=== PATIENT | female | born 1965 | race Two or more races ===

== ENCOUNTER → 2017-11-17 | Outpatient (CLI) | payer OTHER ==
[~2017-11-17] VITALS: Ht 152.4 cm; Wt 84.4 kg
[~2017-11-17] MED LIST: AROMASIN25 MG; AROMASIN25 MG PO; DECADRON P4 MG/ML-1M IH; ETODOLAC300 MG PO; HYZAAR 50-12.1 UDTAB PO; KETO10TA2 PO; NORFLEX100MG PO; TIZANIDINE HCL2 MG PO; TORADOL60 MG IM; VOLTAREM 75MG PO; VOLTAREN-XR100 MG PO; ZITHROMAX TRI-500 MG PO
== END | disposition home or self-care (01) ==
LOC: PPHC 10:25
DX: Z00.8 Encounter for other general examination (principal)

== ENCOUNTER 2017-11-22 07:25 | Outpatient (CLI) | payer OTHER ==
[2017-11-28] MEDS ORDERED: ETODOLAC300 MG PO (09:41)
[2017-11-28] MEDS ORDERED: TIZANIDINE HCL2 MG PO (09:41)
== END 2017-11-22 07:32 | disposition home or self-care (01) ==
LOC: LAB 07:25
DX: Z85.3 Personal history of malignant neoplasm of breast (principal); I10 Essential (primary) hypertension; R10.9 Unspecified abdominal pain

== ENCOUNTER 2018-01-05 15:45 | Outpatient (CLI) | payer OTHER | END 2018-01-05 16:22 | disposition home or self-care (01) | LOC: RAD 15:45 | DX: M54.2 Cervicalgia (principal); M25.512 Pain in left shoulder ==

== ENCOUNTER → 2018-01-05 | Outpatient (CLI) | payer OTHER | END | disposition home or self-care (01) | LOC: PPHC 15:05 | DX: M54.2 Cervicalgia (principal) ==

== ENCOUNTER → 2018-01-14 | Outpatient (CLI) | payer OTHER | END | disposition home or self-care (01) | LOC: RAD 11:18 | DX: M79.671 Pain in right foot (principal) ==

== ENCOUNTER → 2018-01-14 | Outpatient (CLI) | payer OTHER ==
[~2018-01-14] VITALS: Ht 152.4 cm; Wt 85.7 kg
== END | disposition home or self-care (01) ==
LOC: PPHC 11:07
DX: M79.671 Pain in right foot (principal)

== ENCOUNTER → 2018-01-31 | Outpatient (CLI) | payer OTHER | END | disposition home or self-care (01) | LOC: EKG 08:58 | DX: D23.10 Other benign neoplasm of skin of unspecified eyelid, including canthus (principal); Z01.810 Encounter for preprocedural cardiovascular examination ==

== ENCOUNTER → 2018-01-31 | Outpatient (CLI) | payer OTHER | END | disposition home or self-care (01) | LOC: RAD 09:00 | DX: D23.10 Other benign neoplasm of skin of unspecified eyelid, including canthus (principal) ==

== ENCOUNTER → 2018-01-31 | Outpatient (CLI) | payer OTHER | END | disposition home or self-care (01) | LOC: LAB 08:55 | DX: D23.10 Other benign neoplasm of skin of unspecified eyelid, including canthus (principal); Z01.812 Encounter for preprocedural laboratory examination ==

== ENCOUNTER 2018-02-03 06:10 | Day surgery (SDC) | payer OTHER | END 2018-02-03 09:50 | disposition home or self-care (01) | LOC: CIR.AMB 06:10 | DX: H02.64 Xanthelasma of left upper eyelid (principal) ==

== ENCOUNTER 2018-03-31 12:14 | Outpatient (CLI) | payer OTHER | END 2018-03-31 12:20 | disposition home or self-care (01) | LOC: LAB 12:14 | DX: R11.2 Nausea with vomiting, unspecified (principal); R10.2 Pelvic and perineal pain ==

== ENCOUNTER 2018-04-16 09:20 | Emergency (ER) | payer OTHER ==
[~2018-04-16] VITALS: Ht 160 cm; Wt 86.2 kg
[2018-04-16] MEDS ORDERED: HYZAAR 50-12.51 EACH (09:36)
== END 2018-04-16 14:49 | disposition home or self-care (01) ==
LOC: ER 09:20
DX: R07.89 Other chest pain (principal)

== ENCOUNTER 2018-04-20 12:00 | Outpatient (CLI) | payer OTHER ==
[~2018-04-20 12:00] MED LIST changes: +HYZAAR 50-12.51 EACH
== END 2018-04-20 12:50 | disposition home or self-care (01) ==
LOC: RAD 12:00
DX: R06.02 Shortness of breath (principal)

== ENCOUNTER → 2018-04-21 13:54 | Outpatient (CLI) | payer OTHER | END | disposition home or self-care (01) | LOC: LAB 13:54 | DX: I50.22 Chronic systolic (congestive) heart failure (principal) ==

== ENCOUNTER 2018-04-28 10:31 | Outpatient (CLI) | payer OTHER | END 2018-04-28 11:00 | disposition home or self-care (01) | LOC: NUCLEAR 10:31 | DX: I50.22 Chronic systolic (congestive) heart failure (principal); Z85.3 Personal history of malignant neoplasm of breast; I10 Essential (primary) hypertension ==

== ENCOUNTER 2018-06-19 07:13 | Outpatient (CLI) | payer OTHER | END 2018-06-19 07:19 | disposition home or self-care (01) | LOC: LAB 07:13 | DX: R60.9 Edema, unspecified (principal) ==

== ENCOUNTER 2018-09-27 16:20 | Emergency (ER) | payer OTHER ==
[~2018-09-27] VITALS: Ht 162.6 cm; Wt 72.6 kg
== END 2018-09-27 18:32 | disposition home or self-care (01) ==
LOC: ER 16:20
DX: F43.21 Adjustment disorder with depressed mood (principal); F41.8 Other specified anxiety disorders

== ENCOUNTER 2018-11-03 06:38 | Outpatient (CLI) | payer OTHER | END 2018-11-03 06:57 | disposition home or self-care (01) | LOC: LAB 06:38 | DX: J06.9 Acute upper respiratory infection, unspecified (principal); I10 Essential (primary) hypertension; E55.9 Vitamin D deficiency, unspecified; M25.50 Pain in unspecified joint; G93.3 Postviral and related fatigue syndromes ==

== ENCOUNTER → 2018-12-07 | Outpatient (CLI) | payer OTHER | END | disposition home or self-care (01) | LOC: LAB 09:29 | DX: B34.8 Other viral infections of unspecified site (principal); J11.1 Influenza due to unidentified influenza virus with other respiratory manifestations ==

== ENCOUNTER 2019-01-05 07:47 | Outpatient (CLI) | payer OTHER | END 2019-01-05 13:05 | disposition home or self-care (01) | LOC: LAB 07:47 | DX: E03.8 Other specified hypothyroidism (principal); D46.4 Refractory anemia, unspecified; E11.9 Type 2 diabetes mellitus without complications; E55.9 Vitamin D deficiency, unspecified; I10 Essential (primary) hypertension; L40.50 Arthropathic psoriasis, unspecified; M45.9 Ankylosing spondylitis of unspecified sites in spine; M06.09 Rheumatoid arthritis without rheumatoid factor, multiple sites ==

== ENCOUNTER → 2019-01-24 06:28 | Outpatient (CLI) | payer OTHER | END | disposition home or self-care (01) | LOC: LAB 06:28 | DX: K75.89 Other specified inflammatory liver diseases (principal) ==

== ENCOUNTER 2019-02-26 08:02 | Outpatient (CLI) | payer OTHER | END 2019-02-26 08:27 | disposition home or self-care (01) | LOC: LAB 08:02 | DX: K75.89 Other specified inflammatory liver diseases (principal); I25.10 Atherosclerotic heart disease of native coronary artery without angina pectoris; L40.50 Arthropathic psoriasis, unspecified ==

== ENCOUNTER → 2019-02-26 | Outpatient (CLI) | payer OTHER | END | disposition home or self-care (01) | LOC: NUCLEAR 09:00 | DX: M25.50 Pain in unspecified joint (principal) | CPT/HCPCS: 78315; A9503 ==

== ENCOUNTER → 2019-04-13 10:32 | Outpatient (CLI) | payer OTHER | END | disposition home or self-care (01) | LOC: LAB 10:32 | DX: G47.33 Obstructive sleep apnea (adult) (pediatric) (principal); K76.0 Fatty (change of) liver, not elsewhere classified; E03.8 Other specified hypothyroidism ==

== ENCOUNTER 2019-06-26 07:04 | Emergency (ER) | payer OTHER ==
[~2019-06-26] VITALS: Ht 157.5 cm; Wt 97.5 kg
[2019-06-26] MEDS ORDERED: ATACAND16 MG (07:16)
[2019-06-26] MEDS ORDERED: XARELTO15 MG (15:36)
== END 2019-06-26 09:58 | disposition home or self-care (01) ==
LOC: ER 07:04
DX: I89.0 Lymphedema, not elsewhere classified (principal); M25.512 Pain in left shoulder

== ENCOUNTER 2019-06-26 15:35 | Inpatient (IN) | payer OTHER ==
[~2019-06-26] VITALS: Ht 261.6 cm; Wt 97.5 kg
[~2019-06-26 15:35] MED LIST changes: +ATACAND16 MG
[2019-06-26] MEDS ORDERED: XARELTO15 MG (15:36)
== END 2019-06-28 11:00 | disposition home or self-care (01) | DRG 299 ==
LOC: ER 15:35 → ICU-2 21:39
PROVIDERS: ADMIT Internal Medicine
PROC: B246ZZZ Ultrasonography of Right and Left Heart (ICD-10-PCS; principal; 2019-06-26)
PROC: BB24Y0Z Computerized Tomography (CT Scan) of Bilateral Lungs using Other Contrast, Unenhanced and Enhanced (ICD-10-PCS; 2019-06-26)
PROC: 3E0F7GC Introduction of Other Therapeutic Substance into Respiratory Tract, Via Natural or Artificial Opening (ICD-10-PCS; 2019-06-26)
PROC: 4A033R1 Measurement of Arterial Saturation, Peripheral, Percutaneous Approach (ICD-10-PCS; 2019-06-26)
PROC: B54MZZZ Ultrasonography of Right Upper Extremity Veins (ICD-10-PCS; 2019-06-27)
DX: I80.8 Phlebitis and thrombophlebitis of other sites (principal); I26.99 Other pulmonary embolism without acute cor pulmonale; I82.623 Acute embolism and thrombosis of deep veins of upper extremity, bilateral; R09.02 Hypoxemia; Z85.3 Personal history of malignant neoplasm of breast

== ENCOUNTER 2019-07-03 12:11 | Outpatient (CLI) | payer OTHER ==
[~2019-07-03 12:11] MED LIST changes: +XARELTO15 MG
[2019-07-03] MEDS ORDERED: LIPITOR40 MG (17:54)
== END 2019-07-03 12:23 | disposition home or self-care (01) ==
LOC: SONOGRAMA 12:11
DX: R07.89 Other chest pain (principal)

== ENCOUNTER 2019-07-03 17:46 | Emergency (ER) | payer OTHER ==
[~2019-07-03] VITALS: Ht 160 cm; Wt 97.1 kg
[2019-07-03] MEDS ORDERED: LIPITOR40 MG (17:54)
== END 2019-07-03 20:50 | disposition home or self-care (01) ==
LOC: ER 17:46
DX: R06.02 Shortness of breath (principal)

== ENCOUNTER 2019-07-27 13:12 | Outpatient (CLI) | payer OTHER ==
[~2019-07-27 13:12] MED LIST changes: +LIPITOR40 MG
== END 2019-07-27 13:15 | disposition home or self-care (01) ==
LOC: NUCLEAR 13:12
DX: I87.2 Venous insufficiency (chronic) (peripheral) (principal)

== ENCOUNTER 2019-09-13 08:28 | Outpatient (CLI) | payer OTHER | END 2019-09-13 09:52 | disposition home or self-care (01) | LOC: LAB 08:28 | DX: E78.49 Other hyperlipidemia (principal); E55.9 Vitamin D deficiency, unspecified; Z00.00 Encounter for general adult medical examination without abnormal findings; R10.2 Pelvic and perineal pain ==

== ENCOUNTER → 2019-10-01 11:48 | Outpatient (CLI) | payer OTHER | END | disposition home or self-care (01) | LOC: LAB 11:48 | DX: N39.0 Urinary tract infection, site not specified (principal) ==

== ENCOUNTER → 2019-10-01 | Outpatient (CLI) | payer OTHER | END | disposition home or self-care (01) | LOC: SONOGRAMA 11:35 | DX: N39.0 Urinary tract infection, site not specified (principal); N23 Unspecified renal colic ==

== ENCOUNTER → 2019-10-01 | Outpatient (CLI) | payer OTHER | END | disposition home or self-care (01) | LOC: RAD 14:29 | DX: R05 Cough (principal) ==

== ENCOUNTER → 2019-10-08 | Outpatient (CLI) | payer OTHER | END | disposition home or self-care (01) | LOC: NUCLEAR 08:00 | DX: I26.99 Other pulmonary embolism without acute cor pulmonale (principal); I10 Essential (primary) hypertension; C50.812 Malignant neoplasm of overlapping sites of left female breast; C50.811 Malignant neoplasm of overlapping sites of right female breast; E66.8 Other obesity; R06.00 Dyspnea, unspecified ==

== ENCOUNTER 2019-11-11 11:45 | Emergency (ER) | payer OTHER ==
[~2019-11-11] VITALS: Ht 160 cm; Wt 95.3 kg
== END 2019-11-11 15:22 | disposition home or self-care (01) ==
LOC: ER 11:45
DX: R51 Headache (principal)

== ENCOUNTER 2019-11-16 10:47 | Inpatient (IN) | payer OTHER ==
[~2019-11-16] VITALS: Ht 160 cm; Wt 95.3 kg
--- NOTE | 2019-11-16 11:05 | NUR ---
PACIENTE ALERTA, ORIENTADA X 3 REFIERE DOLOR DE RHONA TOMAS DESDE QUE SE A PUESTO TOMAS DESDE A NOCHE
== END 2019-11-18 15:28 | disposition home or self-care (01) | DRG 67 ==
LOC: ER 10:47 → SURH 11:02 → SEC-K 11:02 → MEDJ 13:30 → SURH 15:42
PROVIDERS: ADMIT Internal Medicine
PROC: B348ZZZ Ultrasonography of Bilateral Internal Carotid Arteries (ICD-10-PCS; principal; 2019-11-16)
PROC: B345ZZZ Ultrasonography of Bilateral Common Carotid Arteries (ICD-10-PCS; 2019-11-16)
PROC: B030ZZZ Magnetic Resonance Imaging (MRI) of Brain (ICD-10-PCS; 2019-11-16)
PROC: B030Y0Z Magnetic Resonance Imaging (MRI) of Brain using Other Contrast, Unenhanced and Enhanced (ICD-10-PCS; 2019-11-16)
PROC: B338ZZZ Magnetic Resonance Imaging (MRI) of Bilateral Internal Carotid Arteries (ICD-10-PCS; 2019-11-16)
PROC: B335ZZZ Magnetic Resonance Imaging (MRI) of Bilateral Common Carotid Arteries (ICD-10-PCS; 2019-11-16)
DX: I65.23 Occlusion and stenosis of bilateral carotid arteries (principal); I26.99 Other pulmonary embolism without acute cor pulmonale; I80.8 Phlebitis and thrombophlebitis of other sites; I11.9 Hypertensive heart disease without heart failure; Z85.3 Personal history of malignant neoplasm of breast
CPT/HCPCS: 70552

== ENCOUNTER 2020-01-01 08:20 | Outpatient (CLI) | payer OTHER | END 2020-01-01 08:24 | disposition home or self-care (01) | LOC: RAD 08:20 | DX: Q28.2 Arteriovenous malformation of cerebral vessels (principal); M77.32 Calcaneal spur, left foot; M77.31 Calcaneal spur, right foot ==

== ENCOUNTER 2020-01-01 08:47 | Outpatient (CLI) | payer OTHER | END 2020-01-01 08:58 | disposition home or self-care (01) | LOC: LAB 08:47 | DX: Q28.2 Arteriovenous malformation of cerebral vessels (principal) ==

== ENCOUNTER 2020-02-22 09:48 | Outpatient (CLI) | payer OTHER | END 2020-02-22 09:54 | disposition home or self-care (01) | LOC: TOM 09:48 | DX: I26.99 Other pulmonary embolism without acute cor pulmonale (principal) ==

== ENCOUNTER → 2020-06-03 08:42 | Outpatient (CLI) | payer OTHER | END | disposition home or self-care (01) | LOC: CERTIFICAD 08:42 | PROVIDERS: ATTEND Family Medicine | DX: Z11.1 Encounter for screening for respiratory tuberculosis (principal) ==

== ENCOUNTER 2020-06-16 09:04 | Outpatient (CLI) | payer OTHER | END 2020-06-16 15:00 | disposition home or self-care (01) | LOC: LAB 09:04 | DX: Q28.2 Arteriovenous malformation of cerebral vessels (principal) ==

== ENCOUNTER 2020-06-16 10:08 | Outpatient (CLI) | payer OTHER | END 2020-06-16 10:15 | disposition home or self-care (01) | LOC: RAD 10:08 | PROVIDERS: ATTEND Radiology Vascular & Interventional Radiology | DX: Q28.2 Arteriovenous malformation of cerebral vessels (principal) ==

== ENCOUNTER 2020-07-29 11:11 | Outpatient (CLI) | payer OTHER | END 2020-07-29 11:15 | disposition home or self-care (01) | LOC: LAB 11:11 | PROVIDERS: ATTEND Internal Medicine Hematology & Oncology | DX: D50.8 Other iron deficiency anemias (principal); R74.0 Nonspecific elevation of levels of transaminase and lactic acid dehydrogenase [LDH]; C50.411 Malignant neoplasm of upper-outer quadrant of right female breast; E55.9 Vitamin D deficiency, unspecified ==

== ENCOUNTER → 2020-09-16 | Emergency (ER) | payer OTHER ==
[~2020-09-16] VITALS: Ht 160 cm; Wt 93.4 kg
[~2020-09-16] MED LIST changes: +TOPAMAX50 MG; +TOPROL XL50 M1
== END | disposition home or self-care (01) ==
LOC: ER 18:13
DX: M54.2 Cervicalgia (principal); R51.9 Headache, unspecified; R06.02 Shortness of breath

== ENCOUNTER 2020-10-09 08:21 | Outpatient (CLI) | payer OTHER | END 2020-10-09 08:27 | disposition home or self-care (01) | LOC: TOM 08:21 | PROVIDERS: ATTEND Internal Medicine Pulmonary Disease | DX: R05 Cough (principal); J45.30 Mild persistent asthma, uncomplicated; I26.99 Other pulmonary embolism without acute cor pulmonale ==

== ENCOUNTER 2020-11-08 08:28 | Outpatient (CLI) | payer OTHER | END 2020-11-08 08:32 | disposition home or self-care (01) | LOC: LAB 08:28 | PROVIDERS: ATTEND Internal Medicine Hematology & Oncology | DX: D53.0 Protein deficiency anemia (principal) ==

== ENCOUNTER 2021-01-28 08:09 | Outpatient (CLI) | payer OTHER | END 2021-01-28 08:13 | disposition home or self-care (01) | LOC: LAB 08:09 | PROVIDERS: ATTEND Internal Medicine Hematology & Oncology | DX: D64.89 Other specified anemias (principal); R74.01 Elevation of levels of liver transaminase levels; C50.411 Malignant neoplasm of upper-outer quadrant of right female breast; E70.29 Other disorders of tyrosine metabolism ==

== ENCOUNTER 2021-03-09 06:59 | Outpatient (CLI) | payer OTHER | END 2021-03-09 07:03 | disposition home or self-care (01) | LOC: LAB 06:59 | DX: C73 Malignant neoplasm of thyroid gland (principal); E03.8 Other specified hypothyroidism; E78.2 Mixed hyperlipidemia ==

== ENCOUNTER 2021-06-23 07:34 | Outpatient (CLI) | payer OTHER | END 2021-06-23 07:35 | disposition home or self-care (01) | LOC: LAB 07:34 | PROVIDERS: ATTEND Neuromusculoskeletal Medicine & OMM | DX: E03.8 Other specified hypothyroidism (principal); H53.47 Heteronymous bilateral field defects; Q28.2 Arteriovenous malformation of cerebral vessels ==

== ENCOUNTER 2021-07-30 07:33 | Outpatient (CLI) | payer OTHER | END 2021-07-30 07:55 | disposition home or self-care (01) | LOC: LAB 07:33 | DX: E03.8 Other specified hypothyroidism (principal); E78.2 Mixed hyperlipidemia; C73 Malignant neoplasm of thyroid gland ==

== ENCOUNTER → 2021-09-19 09:19 | Outpatient (CLI) | payer OTHER | END | disposition home or self-care (01) | LOC: LAB 09:19 | PROVIDERS: ATTEND Internal Medicine Cardiovascular Disease | DX: I10 Essential (primary) hypertension (principal); E66.9 Obesity, unspecified; Z13.6 Encounter for screening for cardiovascular disorders; E55.9 Vitamin D deficiency, unspecified; E78.49 Other hyperlipidemia; E03.8 Other specified hypothyroidism; R10.84 Generalized abdominal pain; N39.0 Urinary tract infection, site not specified; D64.89 Other specified anemias ==

== ENCOUNTER → 2021-10-16 | Outpatient (CLI) | payer OTHER | END | disposition home or self-care (01) | LOC: PPH VACUNA 08:00 | PROVIDERS: ATTEND Emergency Medicine Pediatric Emergency Medicine | DX: Z23 Encounter for immunization (principal) ==

== ENCOUNTER 2022-01-14 08:03 | Outpatient (CLI) | payer OTHER | END 2022-01-14 08:23 | disposition home or self-care (01) | LOC: LAB 08:03 | PROVIDERS: ATTEND Internal Medicine Cardiovascular Disease | DX: E78.2 Mixed hyperlipidemia (principal); E11.65 Type 2 diabetes mellitus with hyperglycemia; I10 Essential (primary) hypertension; C73 Malignant neoplasm of thyroid gland; E78.5 Hyperlipidemia, unspecified; E55.9 Vitamin D deficiency, unspecified; N39.0 Urinary tract infection, site not specified; R42 Dizziness and giddiness; R10.2 Pelvic and perineal pain; D64.9 Anemia, unspecified; R10.9 Unspecified abdominal pain; E03.9 Hypothyroidism, unspecified; E07.9 Disorder of thyroid, unspecified; R74.01 Elevation of levels of liver transaminase levels; C50.411 Malignant neoplasm of upper-outer quadrant of right female breast ==

== ENCOUNTER 2022-03-18 10:00 | Outpatient (CLI) | payer OTHER | END 2022-03-18 10:05 | disposition home or self-care (01) | LOC: LAB 10:00 | PROVIDERS: ATTEND Obstetrics & Gynecology | DX: Z00.00 Encounter for general adult medical examination without abnormal findings (principal); I10 Essential (primary) hypertension; E78.00 Pure hypercholesterolemia, unspecified; E03.9 Hypothyroidism, unspecified; N39.0 Urinary tract infection, site not specified; Z11.4 Encounter for screening for human immunodeficiency virus [HIV]; Z12.11 Encounter for screening for malignant neoplasm of colon; E55.9 Vitamin D deficiency, unspecified; Z21 Asymptomatic human immunodeficiency virus [HIV] infection status; R79.9 Abnormal finding of blood chemistry, unspecified; R79.89 Other specified abnormal findings of blood chemistry ==

== ENCOUNTER 2022-03-20 09:06 | Outpatient (CLI) | payer OTHER | END 2022-03-20 09:20 | disposition home or self-care (01) | LOC: LAB 09:06 | PROVIDERS: ATTEND Obstetrics & Gynecology | DX: Z00.00 Encounter for general adult medical examination without abnormal findings (principal); I10 Essential (primary) hypertension; E03.9 Hypothyroidism, unspecified; E78.00 Pure hypercholesterolemia, unspecified; N39.0 Urinary tract infection, site not specified; Z11.4 Encounter for screening for human immunodeficiency virus [HIV]; Z12.11 Encounter for screening for malignant neoplasm of colon; E55.9 Vitamin D deficiency, unspecified; Z21 Asymptomatic human immunodeficiency virus [HIV] infection status; R79.9 Abnormal finding of blood chemistry, unspecified; R79.89 Other specified abnormal findings of blood chemistry ==

== ENCOUNTER → 2022-07-24 | Outpatient (CLI) | payer OTHER | END | disposition home or self-care (01) | LOC: LAB 09:29 | PROVIDERS: ATTEND Obstetrics & Gynecology | DX: D64.9 Anemia, unspecified (principal); N39.0 Urinary tract infection, site not specified; R10.9 Unspecified abdominal pain; E03.9 Hypothyroidism, unspecified; E78.5 Hyperlipidemia, unspecified; E55.9 Vitamin D deficiency, unspecified; R80.9 Proteinuria, unspecified; E11.9 Type 2 diabetes mellitus without complications ==

== ENCOUNTER → 2022-11-03 08:35 | Outpatient (CLI) | payer OTHER | END | disposition home or self-care (01) | LOC: LAB 08:35 | PROVIDERS: ATTEND Internal Medicine Hematology & Oncology | DX: D64.9 Anemia, unspecified (principal); R74.01 Elevation of levels of liver transaminase levels; C50.411 Malignant neoplasm of upper-outer quadrant of right female breast; C56.1 Malignant neoplasm of right ovary ==

== ENCOUNTER 2023-06-14 06:44 | Outpatient (CLI) | payer OTHER | END 2023-06-14 06:45 | disposition home or self-care (01) | LOC: LAB 06:44 | PROVIDERS: ATTEND Internal Medicine Hematology & Oncology | DX: D64.9 Anemia, unspecified (principal); E11.9 Type 2 diabetes mellitus without complications; E78.5 Hyperlipidemia, unspecified; C50.411 Malignant neoplasm of upper-outer quadrant of right female breast ==

== ENCOUNTER 2023-07-13 06:49 | Outpatient (CLI) | payer OTHER | END 2023-07-13 06:50 | disposition home or self-care (01) | LOC: LAB 06:49 | DX: E03.9 Hypothyroidism, unspecified (principal); N39.0 Urinary tract infection, site not specified; D64.9 Anemia, unspecified; E55.9 Vitamin D deficiency, unspecified; Z12.11 Encounter for screening for malignant neoplasm of colon; Z88.9 Allergy status to unspecified drugs, medicaments and biological substances ==

== ENCOUNTER → 2023-08-08 07:28 | Outpatient (CLI) | payer OTHER ==
[2023-08-08 08:20] LABS: CREATININE SERUM 0.75 mg/dL (0.55-1.02)
== END | disposition home or self-care (01) ==
LOC: LAB 07:28
DX: Q28.2 Arteriovenous malformation of cerebral vessels (principal)

== ENCOUNTER 2023-12-02 06:31 | Outpatient (CLI) | payer OTHER ==
[2023-12-02 07:35] LABS: PH,URINE 5.5 (5.0-8.0); URINE APPEARANCE Clear; URINE BILIRRUBIN Negative (NEGATIVE); URINE BLOOD Negative; URINE COLOR Yellow; URINE GLUCOSE Negative (NEGATIVE); URINE LEUKOCYTE Negative; URINE NITRATE Negative; URINE PROTEIN Negative (NEGATIVE)
[2023-12-02 07:39] LABS: URINE BACTERIA 924.6 uL (0.0-1933); URINE EPITHELIAL CELLS 20.5 uL (0.0-38.8); URINE WBC 7.7 uL (0.0-23.2)
== END 2023-12-02 06:32 | disposition home or self-care (01) ==
LOC: LAB 06:31
PROVIDERS: ATTEND General Practice
DX: N39.0 Urinary tract infection, site not specified (principal)

== ENCOUNTER 2023-12-02 07:23 | Outpatient (CLI) | payer OTHER ==
[2023-12-02 08:06] LABS: HEMATOCRIT 35.9 % (36.0-45.00); HEMOGLOBIN 11.8 g/dL (12.0-15.00); MEAN CELL VOLUME 79.4 fL (80.00-100.00); MEAN CORPUSCULAR HEMOGLOBIN 26.2 pg (27.00-32.0); PLATELET COUNT 375 K/uL (150-450); RED BLOOD COUNT 4.52 M/uL (4.00-6.00); RED CELL DISTRIBUTION WIDTH 16.1 % (11.5-14.5)
[2023-12-02 08:30] LABS: ALBUMIN 3.4 gm/dL (3.4-5.0); BILIRUBIN TOTAL 0.46 mg/dL (0.3-1.2); CALCIUM 8.9 mg/dL (8.5-10.1); CHOL HDL RATIO 2.8 (0-5.0); CREATININE SERUM 0.83 mg/dL (0.55-1.02); GFR 70.86; GLOBULINA 3.7 G/DL (2.4-3.5); POTASSIUM 3.89 mEq/L (3.5-5.1); TOTAL PROTEIN 7.1 gm/dL (6.4-8.2)
== END 2023-12-02 14:05 | disposition home or self-care (01) ==
LOC: LAB 07:23
PROVIDERS: ATTEND Internal Medicine Hematology & Oncology
DX: D64.9 Anemia, unspecified (principal); E11.9 Type 2 diabetes mellitus without complications; I10 Essential (primary) hypertension; C50.411 Malignant neoplasm of upper-outer quadrant of right female breast; E78.00 Pure hypercholesterolemia, unspecified

== ENCOUNTER 2023-12-30 07:04 | Outpatient (CLI) | payer OTHER ==
[2023-12-30 09:06] LABS: CALCIUM 9.7 mg/dL (8.5-10.1); MAGNESIUM 1.9 mg/dL (1.8-2.4); PHOSPHOROUS 3.5 mg/dL (2.5-4.9)
== END 2023-12-30 07:05 | disposition home or self-care (01) ==
LOC: LAB 07:04
PROVIDERS: ATTEND Internal Medicine Hematology & Oncology
DX: M81.0 Age-related osteoporosis without current pathological fracture (principal); E55.9 Vitamin D deficiency, unspecified

== ENCOUNTER 2024-05-09 07:02 | Outpatient (CLI) | payer OTHER ==
[2024-05-09 07:50] LABS: HEMATOCRIT 36.1 % (36.0-45.00); HEMOGLOBIN 11.9 g/dL (12.0-15.00); MEAN CELL VOLUME 80.3 fL (80.00-100.00); MEAN CORPUSCULAR HEMOGLOBIN 26.3 pg (27.00-32.0); MEAN CORPUSCULAR HGB CONC 32.8 g/dl (32.0-36.0); PLATELET COUNT 339 K/uL (150-450); RED CELL DISTRIBUTION WIDTH 15.6 % (11.5-14.5)
[2024-05-09 08:58] LABS: ALBUMIN 3.3 gm/dL (3.4-5.0); BILIRUBIN TOTAL 0.39 mg/dL (0.3-1.2); CALCIUM 9.4 mg/dL (8.5-10.1); CHOL HDL RATIO 3.4 (0-5.0); CREATININE SERUM 0.88 mg/dL (0.55-1.02); GFR 66.23; GLOBULINA 4.1 G/DL (2.4-3.5); POTASSIUM 4.06 mEq/L (3.5-5.1); TOTAL PROTEIN 7.4 gm/dL (6.4-8.2)
== END 2024-05-09 07:03 | disposition home or self-care (01) ==
LOC: LAB 07:02
PROVIDERS: ATTEND Internal Medicine
DX: D64.9 Anemia, unspecified (principal); R10.9 Unspecified abdominal pain; E78.5 Hyperlipidemia, unspecified; E11.9 Type 2 diabetes mellitus without complications

== ENCOUNTER 2024-05-30 06:47 | Outpatient (CLI) | payer OTHER ==
[2024-05-30 07:20] LABS: HEMATOCRIT 35.2 % (36.0-45.00); HEMOGLOBIN 11.6 g/dL (12.0-15.00); MEAN CELL VOLUME 79.3 fL (80.00-100.00); MEAN CORPUSCULAR HEMOGLOBIN 26.1 pg (27.00-32.0); MEAN CORPUSCULAR HGB CONC 32.9 g/dl (32.0-36.0); PLATELET COUNT 370 K/uL (150-450); RED BLOOD COUNT 4.45 M/uL (4.00-6.00); RED CELL DISTRIBUTION WIDTH 15.8 % (11.5-14.5)
[2024-05-30 08:32] LABS: ALBUMIN 3.3 gm/dL (3.4-5.0); BILIRUBIN TOTAL 0.48 mg/dL (0.3-1.2); CALCIUM 9.1 mg/dL (8.5-10.1); CHOL HDL RATIO 3.3 (0-5.0); CREATININE SERUM 0.79 mg/dL (0.55-1.02); GFR 74.75; GLOBULINA 4.2 G/DL (2.4-3.5); POTASSIUM 4.03 mEq/L (3.5-5.1); T4 FREE 1.15 NG/ML (0.76-1.46); TOTAL PROTEIN 7.5 gm/dL (6.4-8.2); TSH 2.5 uIU/mL (0.358-3.74)
== END 2024-05-30 06:48 | disposition home or self-care (01) ==
LOC: LAB 06:47
PROVIDERS: ATTEND Internal Medicine
DX: D64.9 Anemia, unspecified (principal); E11.9 Type 2 diabetes mellitus without complications; I10 Essential (primary) hypertension; C50.411 Malignant neoplasm of upper-outer quadrant of right female breast; E78.00 Pure hypercholesterolemia, unspecified; E03.8 Other specified hypothyroidism; E78.5 Hyperlipidemia, unspecified; E11.65 Type 2 diabetes mellitus with hyperglycemia

== ENCOUNTER 2024-06-12 08:46 | Outpatient (CLI) | payer OTHER | END 2024-06-12 08:52 | disposition home or self-care (01) | LOC: RAD 08:46 | PROVIDERS: ATTEND Internal Medicine Pulmonary Disease | DX: J20.9 Acute bronchitis, unspecified (principal) ==

== ENCOUNTER 2024-06-18 07:43 | Outpatient (CLI) | payer OTHER ==
[2024-06-18 08:35] LABS: PH,URINE 5.5 (5.0-8.0); URINE APPEARANCE Cloudy; URINE BILIRRUBIN Negative (NEGATIVE); URINE BLOOD Negative; URINE COLOR Yellow; URINE GLUCOSE Negative (NEGATIVE); URINE KETONE Trace (NEGATIVE); URINE LEUKOCYTE Trace; URINE NITRATE Negative; URINE PROTEIN Negative (NEGATIVE); URINE UROBILINOGEN 0.2 E.U./dl
[2024-06-18 08:37] LABS: HEMATOCRIT 36.3 % (36.0-45.00); MEAN CELL VOLUME 78.5 fL (80.00-100.00); MEAN CORPUSCULAR HGB CONC 33.1 g/dl (32.0-36.0); PLATELET COUNT 430 K/uL (150-450); RED BLOOD COUNT 4.62 M/uL (4.00-6.00); RED CELL DISTRIBUTION WIDTH 15.6 % (11.5-14.5)
[2024-06-18 08:38] LABS: URINE BACTERIA 2523.5 uL (0.0-1933); URINE EPITHELIAL CELLS 46.3 uL (0.0-38.8); URINE RBC 11.2 uL (0.0-20.8); URINE WBC 42.6 uL (0.0-23.2)
[2024-06-18 08:50] LABS: URINE CAST 1.37 uL (0.0-1.40)
[2024-06-18 08:51] LABS: URINE CRYSTALS MODERATE /HPF
[2024-06-18 09:21] LABS: ob NEGATIVE (NEGATIVE)
[2024-06-18 10:08] LABS: CALCIUM 10.2 mg/dL (8.5-10.1); CHOL HDL RATIO 3.6 (0-5.0); CREATININE SERUM 0.9 mg/dL (0.55-1.02); GFR 64.31; POTASSIUM 3.92 mEq/L (3.5-5.1); T4 TOTAL 12.06 UG/DL (4.8-13.9); TSH 3.93 uIU/mL (0.358-3.74)
== END 2024-06-18 07:55 | disposition home or self-care (01) ==
LOC: LAB 07:43
PROVIDERS: ATTEND General Practice
DX: E03.9 Hypothyroidism, unspecified (principal); N39.0 Urinary tract infection, site not specified; I11.9 Hypertensive heart disease without heart failure; E78.5 Hyperlipidemia, unspecified; Z12.11 Encounter for screening for malignant neoplasm of colon

== ENCOUNTER 2024-09-04 07:21 | Outpatient (CLI) | payer OTHER ==
[2024-09-04 07:55] LABS: URINE APPEARANCE Clear; URINE BACTERIA 1004.2 uL (0.0-1933); URINE BILIRRUBIN Negative (NEGATIVE); URINE BLOOD Negative; URINE COLOR Yellow; URINE EPITHELIAL CELLS 38.6 uL (0.0-38.8); URINE GLUCOSE Negative (NEGATIVE); URINE KETONE Trace (NEGATIVE); URINE LEUKOCYTE Negative; URINE NITRATE Negative; URINE PROTEIN Negative (NEGATIVE); URINE RBC 11.6 uL (0.0-20.8); URINE WBC 21.4 uL (0.0-23.2)
[2024-09-04 07:58] LABS: HEMATOCRIT 36.8 % (36.0-45.00); HEMOGLOBIN 12.4 g/dL (12.0-15.00); MEAN CELL VOLUME 79.5 fL (80.00-100.00); MEAN CORPUSCULAR HEMOGLOBIN 26.8 pg (27.00-32.0); MEAN CORPUSCULAR HGB CONC 33.7 g/dl (32.0-36.0); PLATELET COUNT 372 K/uL (150-450); RED BLOOD COUNT 4.62 M/uL (4.00-6.00); RED CELL DISTRIBUTION WIDTH 16.6 % (11.5-14.5)
[2024-09-04 08:09] LABS: URINE CAST 0.61 uL (0.0-1.40)
[2024-09-04 09:06] LABS: ALBUMIN 3.6 gm/dL (3.4-5.0); BILIRUBIN TOTAL 0.58 mg/dL (0.3-1.2); CHOL HDL RATIO 2.7 (0-5.0); CREATININE SERUM 0.8 mg/dL (0.55-1.02); GFR 73.67; GLOBULINA 3.6 G/DL (2.4-3.5); POTASSIUM 3.78 mEq/L (3.5-5.1); TOTAL PROTEIN 7.2 gm/dL (6.4-8.2)
[2024-09-04 09:15] LABS: TSH 1.76 uIU/mL (0.358-3.74)
== END 2024-09-04 07:25 | disposition home or self-care (01) ==
LOC: LAB 07:21
PROVIDERS: ATTEND Internal Medicine
DX: E11.65 Type 2 diabetes mellitus with hyperglycemia (principal); E78.5 Hyperlipidemia, unspecified; I10 Essential (primary) hypertension; E03.8 Other specified hypothyroidism; N39.0 Urinary tract infection, site not specified; D64.9 Anemia, unspecified; I11.9 Hypertensive heart disease without heart failure

== ENCOUNTER 2024-10-18 08:21 | Emergency (ER) | payer OTHER ==
[~2024-10-18] VITALS: Ht 160 cm; Wt 98.4 kg
[2024-10-18] MEDS ORDERED: OZEMPIC0.25 MG/02 (08:27)
[2024-10-18 08:29] VITALS: BP 126/84; O2SAT 96
[2024-10-18] MEDS ORDERED: FAMOTIDINE/PF 20 MG in 0.9 % SODIUM CHLORIDE 8 ML IV PUSH STA (09:11)
[2024-10-18] MEDS ORDERED: ONDANSETRON HCL 2 MG/ML VIAL IV ONE (09:15)
== END 2024-10-18 09:27 | disposition home or self-care (01) ==
LOC: ER 08:24
DX: R11.0 Nausea (principal); R53.1 Weakness; I10 Essential (primary) hypertension; E11.9 Type 2 diabetes mellitus without complications; Z88.9 Allergy status to unspecified drugs, medicaments and biological substances
CPT/HCPCS: 96365; 99282; J2405

== ENCOUNTER 2024-10-19 08:57 | Outpatient (CLI) | payer OTHER ==
[~2024-10-19 08:57] MED LIST changes: +OZEMPIC0.25 MG/02
[2024-10-19 09:50] LABS: HEMOGLOBIN 12.1 g/dL (12.0-15.00); MEAN CELL VOLUME 80.1 fL (80.00-100.00); MEAN CORPUSCULAR HEMOGLOBIN 26.1 pg (27.00-32.0); MEAN CORPUSCULAR HGB CONC 32.6 g/dl (32.0-36.0); PLATELET COUNT 338 K/uL (150-450); RED BLOOD COUNT 4.62 M/uL (4.00-6.00); RED CELL DISTRIBUTION WIDTH 15.3 % (11.5-14.5)
[2024-10-19 11:07] LABS: ALBUMIN 3.5 gm/dL (3.4-5.0); BILIRUBIN TOTAL 0.77 mg/dL (0.3-1.2); CALCIUM 9.2 mg/dL (8.5-10.1); CREATININE SERUM 0.93 mg/dL (0.55-1.02); GFR 61.92; GLOBULINA 3.7 G/DL (2.4-3.5); MAGNESIUM 1.8 mg/dL (1.8-2.4); POTASSIUM 3.62 mEq/L (3.5-5.1); TOTAL PROTEIN 7.2 gm/dL (6.4-8.2)
== END 2024-10-19 09:02 | disposition home or self-care (01) ==
LOC: LAB 08:57
PROVIDERS: ATTEND Internal Medicine
DX: E11.65 Type 2 diabetes mellitus with hyperglycemia (principal); E83.42 Hypomagnesemia

== ENCOUNTER 2024-10-22 00:32 | Emergency (ER) | payer OTHER ==
[~2024-10-22] VITALS: Ht 160 cm; Wt 98.4 kg
[2024-10-22] MEDS ORDERED: FAMOTIDINE/PF 20 MG/2 ML VIAL IV PUSH STA (02:05)
[2024-10-22] MEDS ORDERED: PROMETHAZINE HCL 50 MG/ML AMPUL IM STA (02:05)
[2024-10-22] MEDS ORDERED: 0.9 % SODIUM CHLORIDE 1,000 ML IV ONE (02:15)
[2024-10-22 03:13] LABS: HEMATOCRIT 39.3 % (36.0-45.00); HEMOGLOBIN 13.2 g/dL (12.0-15.00); MEAN CELL VOLUME 78.4 fL (80.00-100.00); MEAN CORPUSCULAR HEMOGLOBIN 26.3 pg (27.00-32.0); MEAN CORPUSCULAR HGB CONC 33.5 g/dl (32.0-36.0); PLATELET COUNT 395 K/uL (150-450); RED BLOOD COUNT 5.01 M/uL (4.00-6.00); RED CELL DISTRIBUTION WIDTH 15.4 % (11.5-14.5)
[2024-10-22 04:03] LABS: PH,URINE 5.5 (5.0-8.0); URINE APPEARANCE Clear; URINE BILIRRUBIN Negative (NEGATIVE); URINE BLOOD Negative; URINE COLOR Yellow; URINE GLUCOSE Negative (NEGATIVE); URINE KETONE Negative (NEGATIVE); URINE LEUKOCYTE Negative; URINE NITRATE Negative; URINE PROTEIN Negative (NEGATIVE); URINE UROBILINOGEN 0.2 E.U./dl
[2024-10-22 04:04] LABS: CALCIUM 10.8 mg/dL (8.5-10.1); CREATININE SERUM 0.83 mg/dL (0.55-1.02); GFR 70.61; POTASSIUM 3.61 mEq/L (3.5-5.1)
[2024-10-22 04:07] LABS: URINE BACTERIA 573.9 uL (0.0-1933); URINE EPITHELIAL CELLS 20.8 uL (0.0-38.8); URINE RBC 3.2 uL (0.0-20.8); URINE WBC 9.3 uL (0.0-23.2)
[2024-10-22 04:09] LABS: URINE CAST 0.14 uL (0.0-1.40)
[2024-10-22] MEDS ORDERED: PHENERGAN25 MG PO (05:43)
== END 2024-10-22 05:45 ==
LOC: ER 00:34
PROVIDERS: General Practice
DX: R11.10 Vomiting, unspecified (principal); R11.0 Nausea; I10 Essential (primary) hypertension; Z88.6 Allergy status to analgesic agent
CPT/HCPCS: 36415; 96365; 96366; 96372; 99282; J2550; J3490; J7030

== ENCOUNTER → 2024-11-07 08:46 | Outpatient (CLI) | payer OTHER ==
[~2024-11-07 08:46] MED LIST changes: +PHENERGAN25 MG PO
[2024-11-07 09:22] LABS: HEMATOCRIT 36.8 % (36.0-45.00); HEMOGLOBIN 12.3 g/dL (12.0-15.00); MEAN CELL VOLUME 78.9 fL (80.00-100.00); MEAN CORPUSCULAR HEMOGLOBIN 26.3 pg (27.00-32.0); MEAN CORPUSCULAR HGB CONC 33.3 g/dl (32.0-36.0); PLATELET COUNT 380 K/uL (150-450); RED BLOOD COUNT 4.67 M/uL (4.00-6.00); RED CELL DISTRIBUTION WIDTH 15.9 % (11.5-14.5)
[2024-11-07 10:25] LABS: ALBUMIN 3.3 gm/dL (3.4-5.0); BILIRUBIN TOTAL 0.74 mg/dL (0.3-1.2); CALCIUM 9.1 mg/dL (8.5-10.1); CHOL HDL RATIO 3.3 (0-5.0); CREATININE SERUM 0.79 mg/dL (0.55-1.02); GFR 74.75; GLOBULINA 3.7 G/DL (2.4-3.5); POTASSIUM 3.75 mEq/L (3.5-5.1)
== END | disposition home or self-care (01) ==
LOC: LAB 08:46
PROVIDERS: ATTEND Internal Medicine Cardiovascular Disease
DX: D64.9 Anemia, unspecified (principal); R10.9 Unspecified abdominal pain; E78.5 Hyperlipidemia, unspecified; E11.9 Type 2 diabetes mellitus without complications

== ENCOUNTER 2024-11-10 13:44 | Emergency (ER) | payer OTHER ==
[~2024-11-10] VITALS: Ht 160 cm; Wt 99.3 kg
[2024-11-10] MEDS ORDERED: LIPITOR40 M1 PO (14:49)
[2024-11-10] MEDS ORDERED: GLUMETZA500 MG PO (14:49)
[2024-11-10] MEDS ORDERED: ONDANSETRON HCL 2 MG/ML VIAL ONE (16:27)
[2024-11-10] MEDS ORDERED: MECLIZINE HCL 25 MG TABLET PO ONE ×2 (16:27→16:30)
[2024-11-10] MEDS ORDERED: ONDANSETRON HCL 2 MG/ML VIAL IM ONE (16:30)
[2024-11-10 17:43] LABS: PH,URINE 5.5 (5.0-8.0); URINE APPEARANCE Cloudy; URINE BILIRRUBIN Negative (NEGATIVE); URINE BLOOD Negative; URINE COLOR Yellow; URINE GLUCOSE Negative (NEGATIVE); URINE KETONE Negative (NEGATIVE); URINE LEUKOCYTE Negative; URINE NITRATE Negative; URINE PROTEIN Negative (NEGATIVE); URINE UROBILINOGEN 0.2 E.U./dl
[2024-11-10 17:48] LABS: URINE BACTERIA 1041.5 uL (0.0-1933); URINE EPITHELIAL CELLS 49.5 uL (0.0-38.8); URINE RBC 8.5 uL (0.0-20.8); URINE WBC 17.2 uL (0.0-23.2)
[2024-11-10 18:35] LABS: HEMATOCRIT 39.6 % (36.0-45.00); MEAN CELL VOLUME 79.9 fL (80.00-100.00); MEAN CORPUSCULAR HEMOGLOBIN 26.2 pg (27.00-32.0); MEAN CORPUSCULAR HGB CONC 32.7 g/dl (32.0-36.0); PLATELET COUNT 436 K/uL (150-450); RED BLOOD COUNT 4.95 M/uL (4.00-6.00); RED CELL DISTRIBUTION WIDTH 15.6 % (11.5-14.5)
[2024-11-10 18:39] LABS: INR 1.02; PARTIAL THROMBOPLASTIN TIME 30.1 SECONDS (22.0-34.0); PROTHROMBIN TIME 11.1 SECONDS (9.0-11.5)
[2024-11-10 18:46] LABS: ALBUMIN 3.6 gm/dL (3.4-5.0); BILIRUBIN TOTAL 0.84 mg/dL (0.3-1.2); CALCIUM 9.5 mg/dL (8.5-10.1); CREATININE SERUM 0.79 mg/dL (0.55-1.02); GFR 74.75; GLOBULINA 4.2 G/DL (2.4-3.5); POTASSIUM 3.95 mEq/L (3.5-5.1); TOTAL PROTEIN 7.8 gm/dL (6.4-8.2)
[2024-11-10] MEDS ORDERED: DRAMAMINE25 M1 PO (21:21)
[2024-11-10] MEDS ORDERED: ZOFRAN8 MG PO (21:21)
== END 2024-11-10 21:30 | disposition home or self-care (01) ==
LOC: ER 13:46
PROVIDERS: General Practice
DX: R42 Dizziness and giddiness (principal); Z20.822 Contact with and (suspected) exposure to COVID-19; I10 Essential (primary) hypertension; E11.9 Type 2 diabetes mellitus without complications; Z79.84 Long term (current) use of oral hypoglycemic drugs; Z88.8 Allergy status to other drugs, medicaments and biological substances; Z85.3 Personal history of malignant neoplasm of breast
CPT/HCPCS: 36415; 70450; 70490; 96372; 99284; J2405

== ENCOUNTER → 2024-11-26 08:05 | Outpatient (CLI) | payer OTHER ==
[~2024-11-26 08:05] MED LIST changes: +DRAMAMINE25 M1 PO; +GLUMETZA500 MG PO; +LIPITOR40 M1 PO; +ZOFRAN8 MG PO
[2024-11-26 08:53] LABS: HEMATOCRIT 37.1 % (36.0-45.00); HEMOGLOBIN 12.5 g/dL (12.0-15.00); MEAN CELL VOLUME 78.8 fL (80.00-100.00); MEAN CORPUSCULAR HEMOGLOBIN 26.5 pg (27.00-32.0); MEAN CORPUSCULAR HGB CONC 33.6 g/dl (32.0-36.0); PLATELET COUNT 390 K/uL (150-450); RED BLOOD COUNT 4.71 M/uL (4.00-6.00); RED CELL DISTRIBUTION WIDTH 15.9 % (11.5-14.5)
[2024-11-26 08:59] LABS: PH,URINE 5.5 (5.0-8.0); URINE APPEARANCE Clear; URINE BILIRRUBIN Negative (NEGATIVE); URINE BLOOD Negative; URINE COLOR Yellow; URINE GLUCOSE Negative (NEGATIVE); URINE KETONE Trace (NEGATIVE); URINE LEUKOCYTE Negative; URINE NITRATE Negative; URINE PROTEIN Negative (NEGATIVE); URINE UROBILINOGEN 0.2 E.U./dl
[2024-11-26 09:04] LABS: URINE BACTERIA 84.4 uL (0.0-1933); URINE EPITHELIAL CELLS 19.6 uL (0.0-38.8); URINE RBC 5.8 uL (0.0-20.8); URINE WBC 7.1 uL (0.0-23.2)
[2024-11-26 09:11] LABS: URINE CAST 0.58 uL (0.0-1.40)
[2024-11-26 09:17] LABS: ob NEGATIVE (NEGATIVE)
[2024-11-26 09:57] LABS: ALBUMIN 3.3 gm/dL (3.4-5.0); BILIRUBIN TOTAL 0.62 mg/dL (0.3-1.2); CALCIUM 9.7 mg/dL (8.5-10.1); CHOL HDL RATIO 2.9 (0-5.0); CREATININE SERUM 0.78 mg/dL (0.55-1.02); GFR 75.85; POTASSIUM 4.11 mEq/L (3.5-5.1); T4 TOTAL 10.96 UG/DL (4.8-13.9); TOTAL PROTEIN 7.3 gm/dL (6.4-8.2); TSH 2.77 uIU/mL (0.358-3.74)
[2024-11-26 11:21] LABS: T3 TOTAL 0.949 ng/ml (0.846-2.02); VITAMIN D3 25 HYDROXY 45.43 ng/ml (30-120)
== END | disposition home or self-care (01) ==
LOC: LAB 08:05
PROVIDERS: ATTEND General Practice
DX: E11.65 Type 2 diabetes mellitus with hyperglycemia (principal); E03.9 Hypothyroidism, unspecified; N39.0 Urinary tract infection, site not specified; D64.9 Anemia, unspecified; E53.9 Vitamin B deficiency, unspecified; I11.9 Hypertensive heart disease without heart failure; E55.9 Vitamin D deficiency, unspecified; E78.5 Hyperlipidemia, unspecified; Z12.11 Encounter for screening for malignant neoplasm of colon

== ENCOUNTER 2025-07-02 06:24 | Outpatient (CLI) | payer OTHER ==
[~2025-07-02 06:24] MED LIST changes: +ATACAND HCT 161 EACH; +ATACAND4 MG; +FOSAMAX70 MG; +INDERAL XL80 MG; +MEDROLPACK PO; +PERCOCET 5-3251 EACH; +ULTRAM50 MG PO; +VISTARIL50 MG PO; +XANAX2 MG PO; +XARELTO20 M1
[2025-07-02 07:39] LABS: BASO % 0.5 % (0.1-1.2); EOS # 0.07 (0.04-0.54); EOS % 0.7 % (0.7-7.0); LYMPH # 3.19 (1.18-3.74); LYMPH % 30.6 % (19.3-53.1); MEAN PLATELET VOLUME 10.80 fl (9.4-12.4); MONO # 0.63 (0.24-0.82); MONO % 6.1 % (4.7-12.5); NEUT # 6.45 (1.56-6.13); NEUT % 61.9 % (34.0-71.1); RED CELL DISTRIBUTION WIDTH 15.4 % (11.6-14.4)
[2025-07-02 08:31] LABS: ALT/SGPT 29.0 U/L (12-78); AST/SGOT 17.0 U/L (15-37); BILIRUBIN TOTAL 0.66 mg/dL (0.3-1.2); BUN CREA RATIO 32.0 (7.0-25.0); CREATININE SERUM 0.73 mg/dL (0.55-1.02); GFR 81.6; GLOBULINA 3.6 G/DL (2.4-3.5); GLUCOSE FASTING 93.0 mg/dL (65-100); OSMOLALITY SERUM 285.0 MOSM/KG (275-295)
== END 2025-07-02 06:30 | disposition home or self-care (01) ==
LOC: LAB 06:24
PROVIDERS: ATTEND Internal Medicine Hematology & Oncology
DX: D64.9 Anemia, unspecified (principal); R74.01 Elevation of levels of liver transaminase levels; C50.411 Malignant neoplasm of upper-outer quadrant of right female breast

== ENCOUNTER 2025-09-09 08:00 | Day surgery (SDC) | payer OTHER ==
[2025-08-27 08:33] LABS: BASO % 0.5 % (0.1-1.2); EOS # 0.10 (0.04-0.54); EOS % 0.9 % (0.7-7.0); LYMPH # 3.45 (1.18-3.74); LYMPH % 32.5 % (19.3-53.1); MEAN PLATELET VOLUME 10.30 fl (9.4-12.4); MONO # 0.64 (0.24-0.82); MONO % 6.0 % (4.7-12.5); NEUT # 6.33 (1.56-6.13); NEUT % 59.7 % (34.0-71.1); RED CELL DISTRIBUTION WIDTH 15.0 % (11.6-14.4)
[2025-08-27 08:45] LABS: URINE APPEARANCE Cloudy; URINE BILIRRUBIN Negative (NEGATIVE); URINE BLOOD Negative; URINE COLOR Yellow; URINE GLUCOSE Negative (NEGATIVE); URINE KETONE Trace (NEGATIVE); URINE LEUKOCYTE Negative; URINE NITRATE Negative; URINE PROTEIN Trace (NEGATIVE); URINE UROBILINOGEN 1.0 E.U./dl
[2025-08-27 08:47] LABS: URINE BACTERIA 455.9 uL (0.0-1933); URINE EPITHELIAL CELLS 26.9 uL (0.0-38.8); URINE RBC 18.7 uL (0.0-20.8); URINE WBC 16.3 uL (0.0-23.2)
[2025-08-27 08:53] VITALS: BP 126/85
[2025-08-27 08:56] LABS: INR 0.97
[2025-08-27 08:59] LABS: URINE CAST 0.58 uL (0.0-1.40)
[2025-08-27 09:06] LABS: URINE CRYSTALS MODERATE /HPF; URINE MUCUS HEAVY
[2025-08-27 09:30] LABS: ALT/SGPT 30.0 U/L (12-78); AST/SGOT 19.0 U/L (15-37); BILIRUBIN TOTAL 0.69 mg/dL (0.3-1.2); BUN CREA RATIO 25.0 (7.0-25.0); CREATININE SERUM 0.67 mg/dL (0.55-1.02); GFR 90.09; GLOBULINA 3.5 G/DL (2.4-3.5); GLUCOSE FASTING 93.0 mg/dL (65-100); OSMOLALITY SERUM 286.0 MOSM/KG (275-295)
[~2025-09-09] VITALS: Ht 160 cm; Wt 92.5 kg
[~2025-09-09 08:00] MED LIST changes: +LEVOTHYROXINE25 MCG PO
[2025-09-09] MEDS ORDERED: POVIDONE-IODINE 118 ML BOTT TOP ONE (11:29)
[2025-09-09] MEDS ORDERED: KETOROLAC TROMETHAMINE 30 MG VIAL IV ONE (12:45)
[2025-09-09] MEDS ORDERED: ONDANSETRON HCL 2 MG/ML VIAL IV ONE (12:45)
[2025-09-09 21:53] VITALS: BP 143/85; O2SAT 100
== END 2025-09-09 16:25 | disposition home or self-care (01) ==
LOC: CIR.AMB 08:00
PROVIDERS: ATTEND Obstetrics & Gynecology
DX: N84.1 Polyp of cervix uteri (principal); N95.0 Postmenopausal bleeding; N84.0 Polyp of corpus uteri